=== PATIENT | female | born 1985 | race Caucasian/White ===

== ENCOUNTER 2019-11-27 12:46 | Inpatient (IN) | payer OTHER ==
[~2019-11-27] VITALS: Ht 157.5 cm; Wt 68.0 kg
[2019-11-27] MEDS ORDERED: HYDROCODONE/APAP 5/325MG 1 EACH TABLET ONE (13:15)
[2019-11-27] MEDS ORDERED: ONDANSETRON 4 MG TAB.RAPDIS ONE (13:20)
--- NOTE | 2019-11-27 13:21 | NUR ---
Patient Pieter JAIN c/c S/p trip and fall Rt kneeand leg pain patient moved to room 8 shes on her Cp talking to her mom medication for pain ordered and given by mouth ,Radiology @ bedside
[2019-11-27] MEDS ORDERED: ONDANSETRON 4 MG TAB.RAPDIS SL ONE (13:30)
[2019-11-27] MEDS ORDERED: HYDROCODONE/APAP 5/325MG 1 EACH TABLET PO ONE (13:30)
--- NOTE | 2019-11-27 15:45 | NUR ---
M/S RN OPENING NOTES RECEIVED PT FROM ER VIA [facility] ACCOMPANIED BY 2 POSTDOCTORAL FELLOW TRANSFERRED TO ROOM 207-1 WITH PRIMARY DIAGNOSIS OF RIGHT TIBIAL PLATEAU FRACTURE. RIGHT LEG WITH IMMOBILIZER IN PLACE. PT A/OX4, RESPONSIVE TO ALL STIMULI. RESPIRATION EVEN AND NON LABORED WITH NO ACUTE RESPIRATORY DISTRESS, SATING 99% IN ROOM AIR TEMP. ABD SOFT AND NON DISTENDED WITH ACTIVE BOWEL SOUNDS. SKIN WARM TO TOUCH AND DRY. PT DECLINED TO CHANGE HER CLOTHES TO HOSPITAL GOWN, ASSESSED VISUALIZED SKIN WITH LEFT HAND ABRASION DUE TO S/P FALL TODAY AFTER TRIPPING DURING JOGGING EXERCISE. PT STATED "I HAVE NO OTHER WOUNDS BESIDES FROM TODAY'S ACCIDENT". EXPLAINED THE REASON FOR TAKING PICTURES DURING ADMISSION, AGREE TO TAKE PICTURE WITH THE HAND ONLY. PT C/O OF PAIN SCALE 6/10 TO RIGHT KNEE, MEDICATION PREFERRED TO BE ADMINISTERED AFTER DINNER. IV SITE AT LEFT AC #20, PATENT IN FLUSHING, SITE HAS NO S/SX OF INFILTRATION. PT ON MED SURG UNIT. ALL CONCERNS ATTENDED AT THIS TIME, CALL LIGHT PLACED WITHIN REACHED, BED IN LOW LOCKED POSITION, SEMI-FOWLERS POSITION, SRX2 UP FOR SAFETY. WILL CONTINUE TO MONITOR CARE
[2019-11-27 15:47] LABS: BASOPHILS % (AUTO) 0.3 % (0.0-2.0); EOSINOPHILS % (AUTO) 0.1 % (0.0-6.0); HEMATOCRIT 38 % (33-45); HEMOGLOBIN 12.7 g/dL (11.5-14.8); LYMPHOCYTES # (AUTO) 1.9 /CMM (0.8-4.8); LYMPHOCYTES % (AUTO) 11.8 % (20.0-44.0); MEAN CORPUSCULAR HGB CONC 33 g/dl (31.0-36.0); MEAN CORPUSCULAR VOLUME 81 fL (82-100); MONOCYTES # (AUTO) 0.5 /CMM (0.1-1.30); MONOCYTES % (AUTO) 3.2 % (2.0-12.0); NEUTROPHILS # (AUTO) 13.5 /CMM (1.8-8.9); NEUTROPHILS % (AUTO) 84.6 % (43.0-81.0); PLATELET COUNT (AUTO) 435 /CMM (150-450); RED BLOOD CELL COUNT(AUTO) 4.75 MIL/uL (4.0-5.2); WHITE BLOOD COUNT (AUTO) 15.9 K/uL (4.3-11.0)
--- NOTE | 2019-11-27 15:47 | NUR ---
Report given to [facility] room 207
[2019-11-27 15:56] LABS: CALCIUM, SERUM 9.4 mg/dL (8.5-10.1); CREATININE 0.8 mg/dL (0.6-1.3); POTASSIUM 3.6 mmol/L (3.5-5.1)
[2019-11-27 16:00] VITALS: BP 133/71
[2019-11-27] MEDS ORDERED: ZOLPIDEM TARTRATE 5 MG TABLET PO PRN (16:00)
[2019-11-27] MEDS ORDERED: MAGNESIUM HYDROXIDE 30 ML UDC PO PRN (16:00)
[2019-11-27] MEDS ORDERED: ACETAMINOPHEN 325 MG TABLET PO PRN (16:00)
[2019-11-27] MEDS ORDERED: Z GUARD REMEDY 2 OZ OINT TP PRN (16:00)
[2019-11-27] MEDS ORDERED: ONDANSETRON HCL/PF 4 MG/2 ML VIAL IVP PRN (16:00)
[2019-11-27] MEDS ORDERED: MAG HYDROX/AL HYDROX/SIMETH 30 ML UDC PO PRN (16:00)
[2019-11-27] MEDS: HYDROCODONE/APAP 5/325MG 1 EACH TABLET PO PRN ×2 (18:41→22:46)
--- NOTE | 2019-11-27 18:52 | NUR ---
M/S RN CLOSING NOTES PT A/OX4, NOT IN ACUTE RESPIRATORY DISTRESS. ABD SOFT AND NON DISTENDED WITH ACTIVE BOWEL SOUNDS, USES BEDPAN IN URINATION. RIGHT LEG IMMOBILIZED DUE TO FRACTURE. GIVEN PAIN MEDICATION DUE TO PAIN SCALE OF 6/10. IV SITE AT LAC #20 PATENT IN FLUSHING, NO S/SX OF INFILTRATION. SKIN WARM TO TOUCH AND DRY. CALL LIGHT WITHIN REACH. ALL CONCERNS ATTENDED. BED IN LOW LOCKED POSITION, SR X2 UP FOR SAFETY. ENDORSED CARE TO NEXT SHIFT.
[2019-11-27 20:00] VITALS: BP 123/72
--- NOTE | 2019-11-27 20:00 | NUR ---
MS/RN OPENING NOTES RECEIVED PATIENT IN BED, TALKING ON THE PHONE, ALERT, ORIENTED X4, ABLE TO VERBALIZE NEEDS, RESPIRATIONS EVEN AND UNLABORED, ON RIGHT KNEE IMMOBILIZER, LEFT AC GAUGE 20 PATENT. RECEIVED ENDORSEMENT FROM AM RN FOR LUTHER. WILL MONITOR. PATIENT WITH PLAN TO BE NPO AT MIDNIGHT FOR PLAN OF SURGERY , TO FOLLOW UP ANY CHANGES.
--- NOTE | 2019-11-27 20:00 | NUR ---
MS/RN NOTES PATIENT HAD HER PARTNER BRING SOME OF HER ESSENTIAL PERSONAL BELONGINGS INCLUDING HER LAPTOP COMPUTER AND PHONE WITH ASSISTANT PROJECT ENGINEER, BUT RECEIVED 2 [employer] INSTEAD FILLED WITH CLOTHES AND DVD PLAYER, PER PATIENT THE ITEMS TO BE SENT BACK WILL BE THE 2 [employer] THAT HAS CLOTHES AND DVDS AND WILL KEEP ONLY THE LAPTOP COMPUTER, PHONES 3 OF THEM AND PHONE ASSISTANT PROJECT ENGINEER AND COMPUTER ASSISTANT PROJECT ENGINEER.
--- NOTE | 2019-11-27 22:47 | NUR ---
MS/RN PATIENT WITH 6/10 Pin on right leg, had voided in urinal, to monitor and norco 5-325 ng po given.
[2019-11-28] MEDS: MORPHINE SULFATE INJ 2 MG/ML DISP.SYRIN IV PRN ×5 (04:12→21:27)
--- NOTE | 2019-11-28 04:26 | NUR ---
MS/RN NOTES PATIENT VERBALIZED AND OBSERVED CRYING, AND REPORTED SEVERE PAIN IN RIGHT LEGS, ALSO WORRIED THAT SHE FEELS SHE CAN NOT MOVE THE UPPER LEG , ALTHOUGH SHE HAS IMMOBILIZER AND ITS PURPOSE IS TO HELP KEEP LEG NOT TO MOVE, PATIENT MADE AWARE BUT REPORTED THAT IT IS HER FIRST TIME TO BE HOSPITALIZED. TO MONITOR.
--- NOTE | 2019-11-28 06:49 | NUR ---
207-1 MS/RN NOTES PATIENT IN BED, SLEPT FEW HOURS, ALERT X4, ATTENDED TO ALL NEEDS,IV SITE PATENT ON RIGHT ARM,WILL ENDORSE TO AM RN FOR LUTHER.DISCUSSED PLAN OF CARE, ABLE TO VERBALIZED UNDERSTANDING.
--- NOTE | 2019-11-28 06:54 | NUR ---
MS/RN NOTES PATIENT HAVING DIFFICULTY USING BEDPAN, TO FOLLOW. WITH MD FOR ORDER FOR URINARY CATHETER,
[2019-11-28 07:11] LABS: BASOPHILS % (AUTO) 0.4 % (0.0-2.0); EOSINOPHILS % (AUTO) 0.3 % (0.0-6.0); HEMATOCRIT 36 % (33-45); HEMOGLOBIN 11.6 g/dL (11.5-14.8); LYMPHOCYTES # (AUTO) 2.8 /CMM (0.8-4.8); LYMPHOCYTES % (AUTO) 21.8 % (20.0-44.0); MEAN CORPUSCULAR HGB CONC 32 g/dl (31.0-36.0); MEAN CORPUSCULAR VOLUME 80 fL (82-100); MONOCYTES # (AUTO) 1.1 /CMM (0.1-1.30); MONOCYTES % (AUTO) 8.6 % (2.0-12.0); NEUTROPHILS # (AUTO) 8.9 /CMM (1.8-8.9); NEUTROPHILS % (AUTO) 68.9 % (43.0-81.0); PLATELET COUNT (AUTO) 398 /CMM (150-450); RED BLOOD CELL COUNT(AUTO) 4.49 MIL/uL (4.0-5.2); WHITE BLOOD COUNT (AUTO) 12.9 K/uL (4.3-11.0)
[2019-11-28 07:30] VITALS: BP 121/72
[2019-11-28 07:30] LABS: CALCIUM, SERUM 8.7 mg/dL (8.5-10.1); CREATININE 0.7 mg/dL (0.6-1.3); MAGNESIUM 1.8 mg/dL (1.8-2.4); PHOSPHORUS 3.2 mg/dL (2.5-4.9); POTASSIUM 3.5 mmol/L (3.5-5.1)
[2019-11-28 07:38] LABS: THYROID STIMULATING HORMONE 3.605 uIU/mL (0.358-3.74)
[2019-11-28 08:00] VITALS: BP 121/72
--- NOTE | 2019-11-28 08:00 | NUR ---
rn notes received patient in the bed awake,a/ox4, no acute respiratory distress, was complaining of pain on right leg, and also has long brace, v/s taken stable, patient using bed fuentes. able to move toes. call light within to reach.continued monitoring.
[2019-11-28] MEDS: PANTOPRAZOLE 40 MG TABLET.DR PO SCH (08:40)
--- NOTE | 2019-11-28 08:41 | NUR ---
rn notes administered morphine sulfate 4 mg/ml iv push for 9/10 pain , per patient request, v/s taken bp-121/72, p-77,r-20. . also seen patient by hospitalist Dr garcia, plan is patient will keep npo for ortho consult.
--- NOTE | 2019-11-28 10:00 | NUR ---
RN NOTES ALL IMAGES TEXT TO THE ORTHO MD SOLITARIO. WAITIN FOR RESPOND, AND DAILY PLAN, AND ORDERS.
[2019-11-28 12:54] VITALS: BP 129/71
--- NOTE | 2019-11-28 12:54 | NUR ---
rn notes administered morphine sulfate 4 mg/ml iv push, continued monitoring. 4 mg/ml iv push for pain on right leg 8/10 per pain scale,per patient request, v/s taken bp-129/71,p-74, r-20.
[2019-11-28 16:00] VITALS: BP 128/69
--- NOTE | 2019-11-28 17:21 | NUR ---
RN NOTES ADMINISTERED MORPHINE SULFATE 4 MG/ML IV PUSH FOR RIGHT LEG PAIN 10/10 PER PAIN SCALE, PER PATIENT REQUEST, V/S TAKEN BP-128/69, P-68, R-20.
--- NOTE | 2019-11-28 17:48 | NUR ---
RN NOTES PATIENT STATE "I NEED ORTHO MD TO CALL TO MY PATIENT'S BEFORE SURGERY CONSENT TO BE SIGNED'. TEXT LUCY QUEEN PHONE NUMBER IS: [phone].
--- NOTE | 2019-11-28 18:30 | NUR ---
rn notes medication were administered for pain effective, patient sign consent form. will collect UA clean catch. educated patient. patient will npo midnight for right surgery tomorrow as scheduled per ortho Dr Moreno. call light within to reach. endorsed oncoming nurse follow plan of care.
--- NOTE | 2019-11-28 19:55 | NUR ---
RN NOTES RECEIVED PATIENT AWAKE ALERT ORIENTED X4. COMPLAINTS OF SEVERE PAIN EVERY TIME SHE IS REPOSITIONING. RIGHT LEG IMMOBILIZER INPLACE. NO SIGNS OF ACUTE RESPIRATORY DISTRESS, BREATHING EVEN END UNLABORED. IV ACCESS INTACT AND PATENT. SAFETY MEASURES IN PLACE, CALL LIGHT WITHIN EASY REACH. ALL NEEDS ANTICIPATED, KEEP CLEAN WARM DRY AND COMFORTABLE. WILL CONTINUE TO MONITOR ACCORDINGLY.
[2019-11-28 20:30] VITALS: BP 124/71
--- NOTE | 2019-11-28 21:27 | NUR ---
RN NOTES MORPHINE 4 MG IV GIVEN ORDERED FOR SEVERE PAIN, WILL MONITOR.
--- NOTE | 2019-11-28 22:00 | NUR ---
RN NOTES OBTAINED URINE SPECIMEN FOR URINALYSIS PROFILE.
[2019-11-29] MEDS: MORPHINE SULFATE INJ 2 MG/ML DISP.SYRIN IV PRN ×4 (02:18→21:47)
--- NOTE | 2019-11-29 02:48 | NUR ---
RN NOTES MORPHINE 4MG IV GIVEN ORDER FOR SEVERE PAIN. WILL MONITOR.
--- NOTE | 2019-11-29 06:43 | NUR ---
RN NOTES ALL NEEDS ATTENDED AND MET. REPOSITIONED FOR COMFORT. ABLE TO REST AND SLEPT AT INTERVALS, USES BEDPAN. WITH RIGHT LEG IMMOBILIZER, IN PLACE. SAFETY MEASURES IN PLACE, KEEP CLEAN WARM DRY AND COMFORTABLE. NPO SINCE YESTERDAY 11/28/19 AT 1800. CALLED AND SPOKE WITH NAHUN OF SURGERY DEPARTMENT. TO CALL AGAIN IN 45 MINUTES FOR SURGERY SCHEDULE.
--- NOTE | 2019-11-29 06:45 | NUR ---
RN NOTES SPOKE WITH NURSING INFORMATION ASSURANCE JUDIE CARBALLO. SURGERY PROCEDURE IS SCHEDULE TODAY 11/29/19 AT 1500 PER LCUY. WILL ENDORSE TO AM NURSE FOR CONTINUITY OF CARE.
[2019-11-29 07:04] LABS: BASOPHILS # (AUTO) 0.1 /CMM (0.0-0.2); BASOPHILS % (AUTO) 0.6 % (0.0-2.0); EOSINOPHILS % (AUTO) 1.7 % (0.0-6.0); HEMATOCRIT 35 % (33-45); HEMOGLOBIN 11.2 g/dL (11.5-14.8); LYMPHOCYTES # (AUTO) 3.3 /CMM (0.8-4.8); LYMPHOCYTES % (AUTO) 29.2 % (20.0-44.0); MEAN CORPUSCULAR HGB CONC 32 g/dl (31.0-36.0); MEAN CORPUSCULAR VOLUME 81 fL (82-100); MONOCYTES # (AUTO) 1.2 /CMM (0.1-1.30); MONOCYTES % (AUTO) 10.9 % (2.0-12.0); NEUTROPHILS # (AUTO) 6.5 /CMM (1.8-8.9); NEUTROPHILS % (AUTO) 57.6 % (43.0-81.0); PLATELET COUNT (AUTO) 382 /CMM (150-450); RED BLOOD CELL COUNT(AUTO) 4.27 MIL/uL (4.0-5.2); WHITE BLOOD COUNT (AUTO) 11.2 K/uL (4.3-11.0)
--- NOTE | 2019-11-29 07:15 | NUR ---
ms rn received on bed, awake,alert,oriented x4,not in any form of distress, respirations even and unlabored,no sob noted, right tibial fracture ,denies pain at this time, will monitor patient.
--- NOTE | 2019-11-29 07:20 | NUR ---
ms rn received on bed, awake,alert,oriented x4,not in any form of distress, respirations even and unlabored,no sob noted.will monitor patient's condition.
[2019-11-29 07:23] LABS: CALCIUM, SERUM 8.8 mg/dL (8.5-10.1); CREATININE 0.5 mg/dL (0.6-1.3); POTASSIUM 3.4 mmol/L (3.5-5.1)
[2019-11-29] MEDS: PANTOPRAZOLE 40 MG TABLET.DR PO SCH (07:30)
[2019-11-29 08:00] VITALS: BP 118/71
--- NOTE | 2019-11-29 08:40 | NUR ---
ms spivey npo at this time, for surgery today at 3pm.
[2019-11-29] MEDS ORDERED: FENTANYL PF 250MCG/5ML AMPUL ONE (14:10)
[2019-11-29] MEDS ORDERED: MIDAZOLAM HCL 2 MG/2ML VIAL ONE (14:10)
[2019-11-29] MEDS ORDERED: ROCURONIUM BROMIDE 50 MG/5 ML ONE (14:11)
[2019-11-29] MEDS ORDERED: FAMOTIDINE/PF INJ 20 MG/2 ML VIAL IV ONE (14:11)
[2019-11-29] MEDS ORDERED: BACITRACIN 50000 UNITS/VIAL ONE (14:25)
[2019-11-29] MEDS ORDERED: BUPIVACAINE 0.5 % PF 150 MG/30 ML VIAL ONE (14:25)
[2019-11-29] MEDS ORDERED: HYDROMORPHONE INJ 2 MG/ML DISP.SYRIN ONE (14:30)
--- NOTE | 2019-11-29 14:30 | NUR ---
ms rn patient went down for surgery,all needs attended.
--- NOTE | 2019-11-29 18:00 | NUR ---
MS RN PATIENT CAME BACK FROM SURGERY, AWAKE,ALERT,ORIENTED X4,NOT IN ANY FORM OF DISTRESS, DENIES PAIN AT THIS TIME,ALL NEEDS ATTENDED.
[2019-11-29] MEDS: POTASSIUM CL. PREMIX PERIPHER. 50 ML IV SCH ×2 (18:31→19:22)
[2019-11-29 20:00] VITALS: BP 128/69
--- NOTE | 2019-11-29 20:06 | NUR ---
Received in bed right leg elevated on a pillow. alert and orientated X4 Drinking Aparna Sue.
[2019-11-29 20:42] VITALS: BP 128/69
[2019-11-30] MEDS: MORPHINE SULFATE INJ 2 MG/ML DISP.SYRIN IV PRN (00:07)
[2019-11-30] MEDS: CEFAZOLIN 2 GM in IV D5W 100 ML IV SCH ×3 (00:09→16:57)
[2019-11-30] MEDS: MORPHINE SULFATE INJ 4 MG/ML DISP.SYRIN IV PRN ×6 (04:28→22:34)
[2019-11-30 04:35] VITALS: BP 117/72
--- NOTE | 2019-11-30 06:14 | NUR ---
ENDING NOTES: MEDICATED X3 FOR PAIN RIHT LED. ELEVATED THE LEG ON POLLOWS PATIENT FOUND THIS NOT COMFORTABLE. REMOVED THE PILLOW. RIGHT FOOT SWAOLLEN PPP FOOT WARM MOVEMENT SEEN SKIN BLANCHABLE. USING THE BEDPAN AND URINE CLEAR YELLOW A GOOD NIGHT
--- NOTE | 2019-11-30 07:30 | NUR ---
MS RN NOTES RECEIVED PT IN BED, AWAKE, A/O X4. PT ON RA, WITH NO ACUTE RESPIRATORY DISTRESS NOTED. PT IN PAIN BUT WILLING TO WAIT UNTIL MORPHINE 4MG PRN TO BE DUE SOON. PT DENIES ANY CONCERNS OR QUESTIONS AT THIS TIME. PIV TO RFA G20, FLUSHED WITH NS, INTACT AND OPERATIONAL. RIGHT LEG IMMOBILIZER PRESENT AND ELEVATED ON THE PILLOW. PT KEPT COMFORTABLE. CALL LIGHT KEPT WITHIN REACH. PT'S BED IN LOWEST, LOCKED POSITION WITH SR X3. WILL CONTINUE PLAN OF CARE.
[2019-11-30 07:33] LABS: CALCIUM, SERUM 8.4 mg/dL (8.5-10.1); CREATININE 0.8 mg/dL (0.6-1.3); POTASSIUM 3.5 mmol/L (3.5-5.1)
[2019-11-30] MEDS: PANTOPRAZOLE 40 MG TABLET.DR PO SCH (07:48)
[2019-11-30 08:00] VITALS: BP 130/75
[2019-11-30 08:37] LABS: BASOPHILS # (AUTO) 0.1 /CMM (0.0-0.2); BASOPHILS % (AUTO) 0.4 % (0.0-2.0); EOSINOPHILS % (AUTO) 0.5 % (0.0-6.0); HEMATOCRIT 32 % (33-45); HEMOGLOBIN 10.5 g/dL (11.5-14.8); LYMPHOCYTES # (AUTO) 2.4 /CMM (0.8-4.8); LYMPHOCYTES % (AUTO) 18.8 % (20.0-44.0); MEAN CORPUSCULAR HGB CONC 33 g/dl (31.0-36.0); MEAN CORPUSCULAR VOLUME 81 fL (82-100); MONOCYTES # (AUTO) 1.3 /CMM (0.1-1.30); MONOCYTES % (AUTO) 10.6 % (2.0-12.0); NEUTROPHILS # (AUTO) 8.8 /CMM (1.8-8.9); NEUTROPHILS % (AUTO) 69.7 % (43.0-81.0); PLATELET COUNT (AUTO) 396 /CMM (150-450); RED BLOOD CELL COUNT(AUTO) 3.96 MIL/uL (4.0-5.2); WHITE BLOOD COUNT (AUTO) 12.7 K/uL (4.3-11.0)
[2019-11-30 11:25] VITALS: BP 129/71
[2019-11-30] MEDS: ALPRAZOLAM 0.5 MG TABLET PO PRN (13:30)
--- NOTE | 2019-11-30 14:30 | NUR ---
MS RN NOTES SEEN AND EVALUATED BY HOSPITALIST/TS, PT'S CONCERNS WERE ADDRESSED REGARDING PAIN MANAGEMENT, ANXIETY AND DISCHARGE PLANNING, CM/ROSA M MADE AWARE WELL. ORDERS PLACED AND CARRIED OUT. WILL CONTINUE TO MONITOR.
[2019-11-30 16:00] VITALS: BP 131/71
[2019-11-30] MEDS: ENOXAPARIN SODIUM 40 MG/0.4 ML DISP.SYRIN SQ SCH (16:59)
--- NOTE | 2019-11-30 17:10 | NUR ---
MS RN NOTES SEEN AND EVALUATED BY PA/CC/ORTHO. PT INFORMED COURY REGARDING HER CONCERNS ABOUT HAVING SORES, THERAPY AND PAIN MANAGEMENT. PA/CC NO NEW ORDERS NOTED AT THIS TIME. WILL CONTINUE TO MONITOR.
--- NOTE | 2019-11-30 19:01 | NUR ---
MS RN NOTES PT REMAINS IN BED, INTERMITTENTLY DOZING OFF, A/O X4. PT ON RA, WITH NO ACUTE RESPIRATORY DISTRESS NOTED. PT IN PAIN BUT TOLERABLE. PIV TO RFA G20, FLUSHED WITH NS, INTACT AND OPERATIONAL. RIGHT LEG IMMOBILIZER PRESENT AND ELEVATED ON THE PILLOW. PT KEPT COMFORTABLE. ALL NEEDS AND CARE ATTENDED. CALL LIGHT KEPT WITHIN REACH. PT'S BED IN LOWEST, LOCKED POSITION WITH SR X3. ENDORSED TO INCOMING NIGHT NURSE FOR LUTHER.
--- NOTE | 2019-11-30 19:43 | NUR ---
MS/RN OPENING NOTES RECEIVED PATIENT IN BED, AWAKE AND TALKING ON THE PHONE, IMMOBILIZER ON, RESPIRATIONS EVEN AND UNLABORED. VITAL SIGNS CHECK SBP ABOVE 120, PULS EAT 110, PATIENT WITH MODERATE PAIN IN LEFT FOOT, AND REQUESTED TO HAVE SOME PRN MORPHINE 4 MG, PATIENT COVIID TEST FOR SWAP IN ORAL, COOPERATIVE AND TOLERATED WELL, WILL BRING IT TO LAB.PATIENT DID NOT EAT DINNER AND SAID NOT HUNGRY BUT HAS SOME SNACKS. WILL MONITOR.RECEIVED ENDORSEMENT FROM AM RN FOR LUTHER. PATIENT PLAN OF CARE DISCUSSED AND WILL BE PROVIDED PT.
[2019-11-30 20:00] VITALS: BP 125/83
--- NOTE | 2019-11-30 22:35 | NUR ---
MS/RN NOTES PAIN MEDICATION REQUESTED FOR SEVERE PAIN ON RIGHT KNEE, OBSERVED CRYING AND HAD VOIDED USING BED GARDINER AND CHANGE LINEN, TO MONITOR.
--- NOTE | 2019-12-01 01:03 | NUR ---
MS/RN NOTES PATIENT AWAKE AND TALKING ON THE PHONE, REQUESTING FOR NEEDED MEDICATION XANAX TO RELIEVE ANXIETY.
[2019-12-01] MEDS: ALPRAZOLAM 0.5 MG TABLET PO PRN (01:05)
[2019-12-01] MEDS: MORPHINE SULFATE INJ 4 MG/ML DISP.SYRIN IV PRN ×2 (02:41→13:43)
[2019-12-01 08:00] VITALS: BP 112/67
--- NOTE | 2019-12-01 08:00 | NUR ---
rn notes received patient in the bed sleeping , no acute respiratory distress, unlabored, arouse when called name or touched. v/s wnl, iv access on right fa intact, long brace on left leg. call light within to reach. continued monitoring.
[2019-12-01] MEDS: PANTOPRAZOLE 40 MG TABLET.DR PO SCH (10:19)
--- NOTE | 2019-12-01 13:43 | NUR ---
rn notes administered morphine sulfate 4 mg/ml iv push for right leg pain 8/10 per patient request, v/s taken bp 127/80, p-100, r-20. call light within to reach, continued monitoring.
[2019-12-01] MEDS ORDERED: HYDR-3972 PO (14:47)
[2019-12-01] MEDS ORDERED: IBUP-1955 PO (14:47)
[2019-12-01] MEDS ORDERED: DOCU100C36 PO (14:47)
[2019-12-01 16:00] VITALS: BP 132/78
[2019-12-01] MEDS: ENOXAPARIN SODIUM 40 MG/0.4 ML DISP.SYRIN SQ SCH (17:00)
--- NOTE | 2019-12-01 19:00 | NUR ---
RN NOTES ADMINISTERED TYLENOL 650 MG PO PRN FOR PAIN RIGHT LOWER LEG, PATIENT GOING TO D/C HOME WITH HOME HEALTH. WAITING FOR TRANSPORTATION CRM DEVELOPER. ENDORSED ONCOMING NURSE FOLLOW PLAN OF CARE.
--- NOTE | 2019-12-01 19:40 | NUR ---
MS RN RECEIVE PT IN BED AWAKE A/O X 3 STABLE, NO S/S OF DISTRESS, SAFETY MEASURES AT ALL TIMES. FOR DISCHARGE
[2019-12-01 20:00] VITALS: BP 119/67
--- NOTE | 2019-12-01 20:58 | NUR ---
PATIENT DISCHARGE PATIENT LEFT AT 2050, QUARTZ MOUNTER BY AMBULANCE VIA GURNEY, REFUSED PHOTOS TO BE TAKEN DESPITE EXPLAINING RISKS AND BENEFITS PER PT"NO PICTURES". PATIENT ON STABLE CONDITION NO S/S OF DISTRESS NOTED, HEALTH EDUCATION AND EXIT CARE WAS PROVIDED, EDUCATION ABOUT DISEASE AND RISKS AND BENEFITS FOLLOW UP CARE PROVIDED,PT VERBALIZED UNDERSTANDING. CONTINUE MEDICATION PRESCRIPTION WAS PROVIDED. VERBALIZED UNDERSTANDING. NO I.V HEPLOCK, ALL BELONGINGS WAS TAKEN, PATIENT APPRECIATIVE TO NURSES AND THANKFUL.
== END 2019-12-01 20:53 | disposition home health service (06) | DRG 313 ==
LOC: ER 12:50 → MEDSG2 15:22
PROVIDERS: ADMIT Student in an Organized Health Care Education/Training Program; ATTEND Nurse Practitioner Acute Care
PROC: 0QSG04Z Reposition Right Tibia with Internal Fixation Device, Open Approach (ICD-10-PCS; principal; 2019-11-29)
PROC: 0S9C3ZX Drainage of Right Knee Joint, Percutaneous Approach, Diagnostic (ICD-10-PCS; 2019-11-29)
DX: S82.141A Displaced bicondylar fracture of right tibia, initial encounter for closed fracture (principal); D72.829 Elevated white blood cell count, unspecified; F41.9 Anxiety disorder, unspecified; S83.511A Sprain of anterior cruciate ligament of right knee, initial encounter; M25.461 Effusion, right knee; S82.831A Other fracture of upper and lower end of right fibula, initial encounter for closed fracture; W01.0XXA Fall on same level from slipping, tripping and stumbling without subsequent striking against object, initial encounter; Y92.480 Sidewalk as the place of occurrence of the external cause; M54.30 Sciatica, unspecified side; M54.32 Sciatica, left side
CPT/HCPCS: 36415; 73560-TC; 73590-TC; 73700-TC; 80048-TC; 80061-TC; 83735-TC; 84100-TC; 84443-TC; 84702-TC; 85025-TC; 85610-TC; 85730-TC; 86850-TC; 87081-TC; 97530-TC; C1713; G0378; J0690; J1170; J1650; J1885; J2250; J2270; J2405; J2704; J2710; J2765; J3010; J3480; J3490; J7050; J7060; L1830; Q0162; U0003-CS